=== PATIENT | female | born 1950 | race Caucasian/White ===

== ENCOUNTER → 2017-07-19 | Outpatient (CLI) | payer OTHER ==
--- NOTE | 2017-07-25 11:05 | MAM ---
EXAM DESCRIPTION: 3D Screening BILATERAL : Digital Mammography. CLINICAL HISTORY: 67 years Female SCREENING . No complaints. No family history of breast cancer. Postmenopausal. No HRT. COMPARISON: Baseline study at this facility.. No prior reports available. TECHNIQUE: Bilateral CC and MLO projection full-field images, 3-D tomosynthesis digital mammographic technique. Also bilateral synthesized CC/ MLO full-field images. CAD not utilized. FINDINGS: The breast parenchymal density pattern is: Scattered areas of fibroglandular density. No skin thickening or nipple retraction bilateral solitary calcifications and bilateral skin calcifications. Most are medially located. Bilateral fibroglandular tissues are more prominent on the left. Focal asymmetry approximately 4 cm from the nipple at the 230 - 330 clock position in the anterior third of the left breast. Not associated with microcalcifications. No focal, stellate mass or density, focal asymmetry , and no suspicious microcalcifications right breast. IMPRESSION: BI-RADS CATEGORY: 0 - INCOMPLETE- Need additional imaging evaluation. FOLLOW-UP: Recall for additional imaging: Bilateral 3-D tomosynthesis full field LM images and targeted left breast ultrasound of the region of interest, if indicated. Written communication concerning the IMPRESSION and Follow-up, will be mailed to the patient and referring health care provider. Electronically signed by: Main Loza MD 07/25/2017 11:04 AM [facility]
== END ==
LOC: MAMMO 16:00
PROVIDERS: ATTEND Family Medicine
DX: Z12.31 Encounter for screening mammogram for malignant neoplasm of breast (principal)

== ENCOUNTER → 2017-08-02 | Outpatient (CLI) | payer OTHER ==
--- NOTE | 2017-08-07 11:30 | US ---
EXAM DESCRIPTION: Breast,Left: Ultrasound CLINICAL HISTORY: 67 yearsFemaleABNORMAL MAMMO COMPARISON: Digital 3-D tomosynthesis bilateral breast date previous 3-D tomosynthesis screening study bilaterally. TECHNIQUE: Transcutaneous scanning of the left breast utilizing two-dimensional and Doppler modes. Scanning performed by the conservation educator and Dr. Loza. FINDINGS: Scanning left breast 300 clock sector 3 to 5 cm from the nipple. Small oval hypoechoic lymph node with echogenic center. Well-defined margins, parallel orientation, no posterior acoustic features. Nonvascular. IMPRESSION: 1. Bi-Rads Category 2: Benign. 2. Please refer to diagnostic digital breast bilateral 3-D tomosynthesis examination and report on this visit. The FINDINGS and the FOLLOW-UP plan were reviewed in person with the patient after the examination. Written communication explaining the IMPRESSION and FOLLOW-UP will be mailed to the patient and referring care provider. Electronically signed by: Main Loza MD 08/07/2017 11:29 AM [facility]
--- NOTE | 2017-08-07 11:30 | MAM ---
EXAM DESCRIPTION: 3D Diagnostic, Bilateral: Digital Mammography CLINICAL HISTORY: 67 yearsFemaleABNORMAL MAMMO. Focal asymmetry anterior left breast on screening examination.. COMPARISON: 3-D screening tomosynthesis bilateral mammography 07/19/2017. Targeted left breast ultrasound following this examination Report from prior examination also reviewed. TECHNIQUE: Bilateral LM projection full-field images, 3-D tomosynthesis digital mammographic technique. Also bilateral synthesized LM full-field images. CAD not utilized. FINDINGS: The breast parenchymal density pattern is: Scattered areas of fibroglandular density. No skin thickening or nipple retraction multiple bilateral skin and parenchymal solitary calcifications. Ultrasound: Scanning left breast 300 clock sector 3 to 5 cm from the nipple. Small oval hypoechoic lymph node with echogenic center. Well-defined margins, parallel orientation, no posterior acoustic features. Nonvascular. IMPRESSION: BI-RADS CATEGORY: 2 - BENIGN FINDINGS. FOLLOW UP: Routine digital bilateral screening, one year interval from July 2017. The FINDINGS and the FOLLOW-UP plan were reviewed in person with the patient after the examination. Written communication explaining the IMPRESSION and FOLLOW-UP will be mailed to the patient and referring care provider. According to the [employer], yearly mammograms are recommended starting at age 40 and continuing as long as a woman is in good health. Any breast change noted on a breast self-exam should be reported promptly to the patient's healthcare provider. Breast MRI is recommended for women with an approximately 20-25% or greater lifetime risk of breast cancer, including women with a strong family history of breast or ovarian cancer and women who have been treated for Hodgkin's disease. A negative mammographic report should not delay tissue diagnosis in patients with significant clinical history or physical findings. Extremely dense breast tissue limits the sensitivity of digital mammography. Electronically signed by: Main Loza MD 08/07/2017 11:29 AM [facility]
== END ==
LOC: MAMMO 14:19
PROVIDERS: ATTEND Family Medicine
DX: R92.8 Other abnormal and inconclusive findings on diagnostic imaging of breast (principal)
CPT/HCPCS: 76641; 77066; G0279

== ENCOUNTER → 2017-08-28 | Outpatient (CLI) | payer OTHER ==
--- NOTE | 2017-08-29 07:32 | US ---
EXAM DESCRIPTION: Thyroid CLINICAL HISTORY: 67 years Female, NONTOXIC GOITER, UNSPECIFIED COMPARISON: None. TECHNIQUE: Real-time sonographic images of the thyroid are obtained. FINDINGS: Right lobe thyroid measures 3.7 x 1.7 x 1.4 cm. There is a hypoechoic solid nodule that is wider than tall without calcifications in the lower pole of the right lobe measuring 7 x 5 x 7 mm. The isthmus measures 3 mm in thickness. There is a heterogeneous mostly hypoechoic solid nodule that is well-circumscribed, wider than tall, and without calcifications in the mid isthmus measuring 1.8 x 1.6 x 0.8 cm. Left lobe of the thyroid measures 3.5 x 0.9 x 1.7 cm. There is a heterogeneous mostly hypoechoic well-circumscribed solid nodule that is wider than tall without calcifications in the upper pole of the left lobe measuring 10 x 5 x 7 mm. IMPRESSION: There are at least 3 solid nodules of the thyroid. Recommend fine-needle aspiration of the largest solid nodule measuring 1.8 cm located in the isthmus. Recommend one year follow-up ultrasound imaging of the other thyroid nodules to determine long-term stability. Electronically signed by: Aaron Harrington MD 08/29/2017 7:30 AM CDT
== END ==
LOC: US 10:11
PROVIDERS: ATTEND Family Medicine
DX: E04.9 Nontoxic goiter, unspecified (principal)

== ENCOUNTER → 2018-03-13 | Outpatient (CLI) | payer OTHER | LOC: LAB.O 14:35 | PROVIDERS: ATTEND Internal Medicine | DX: E04.2 Nontoxic multinodular goiter (principal); E89.0 Postprocedural hypothyroidism; R22.1 Localized swelling, mass and lump, neck ==

== ENCOUNTER → 2018-04-19 | Outpatient (CLI) | payer OTHER | LOC: LAB.O 12:15 | PROVIDERS: ATTEND Internal Medicine | DX: E04.2 Nontoxic multinodular goiter (principal) ==

== ENCOUNTER → 2018-06-11 | Outpatient (CLI) | payer OTHER | LOC: LAB.O 11:10 | PROVIDERS: ATTEND Internal Medicine | DX: E04.2 Nontoxic multinodular goiter (principal) ==

== ENCOUNTER → 2018-07-18 | Outpatient (CLI) | payer OTHER ==
--- NOTE | 2018-07-18 17:34 | MAM ---
EXAM DESCRIPTION: 3D Screening BILATERAL : Digital Mammography. CLINICAL HISTORY: 68 years Female SCREEN . No complaints. No personal or family history of breast cancer. Childbirth. Postmenopausal 18 years. HRT has been taken, not currently. Lifetime risk of developing breast cancer (Tyrer-Cuzick model)(%): 6.7. COMPARISON: Bilateral screening digital breast tomosynthesis 07/19/2017. Left breast diagnostic ultrasound and mammography 08/02/2017. TECHNIQUE: Bilateral CC and MLO projection full-field images, digital tomosynthesis mammographic technique. Bilateral digital 2-D full-field MLO images. CAD not available for tomosynthesis or 2-D images. FINDINGS: The breast parenchymal density pattern is: Scattered areas of fibroglandular density. No skin thickening or nipple retraction. Bilateral multiple solitary parenchymal and skin calcifications. No new focal, stellate mass or density, focal asymmetry , and no suspicious microcalcifications bilaterally. Stable mammograms compared to prior study. Taking into account, differences in mammographic technique. IMPRESSION: Benign exam. BIRAD CATEGORY: 2 BENIGN FINDINGS. RECOMMENDATIONS: FOLLOW UP: Routine digital bilateral mammographic screening, one year interval from fibroid 2019. Written communication explaining the IMPRESSION and follow-up, will be mailed to the patient and referring health care provider. According to the [employer], yearly mammograms are recommended starting at age 40 and continuing as long as a woman is in good health. Any breast change noted on a breast self-exam should be reported promptly to the patient's healthcare provider. Breast MRI is recommended for women with an approximately 20-25% or greater lifetime risk of breast cancer, including women with a strong family history of breast or ovarian cancer and women who have been treated for Hodgkin's disease. A negative mammographic report should not delay tissue diagnosis in patients with significant clinical history or physical findings. Extremely dense breast tissue limits the sensitivity of digital mammography. Electronically signed by: Main Loza MD 07/18/2018 5:31 PM [facility]ICINE [facility]ACTITION[facility]
== END ==
LOC: MAMMO 12:30
PROVIDERS: ATTEND Family Medicine
DX: Z12.31 Encounter for screening mammogram for malignant neoplasm of breast (principal)

== ENCOUNTER → 2018-07-31 | Outpatient (CLI) | payer OTHER | LOC: LAB.O 09:40 | PROVIDERS: ATTEND Internal Medicine | DX: E04.2 Nontoxic multinodular goiter (principal) ==

== ENCOUNTER → 2019-01-23 | Outpatient (CLI) | payer OTHER | LOC: LAB.O 14:11 | PROVIDERS: ATTEND Internal Medicine | DX: E89.0 Postprocedural hypothyroidism (principal); R22.1 Localized swelling, mass and lump, neck ==

== ENCOUNTER → 2019-03-28 | Outpatient (CLI) | payer OTHER | LOC: LAB.O 13:32 | PROVIDERS: ATTEND Internal Medicine | DX: E04.2 Nontoxic multinodular goiter (principal); E89.0 Postprocedural hypothyroidism ==